=== PATIENT | female | born 2005 | race Caucasian/White ===

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

== ENCOUNTER 2023-02-15 22:57 | Emergency (ER) | payer SELFPAY ==
[2023-02-15] MEDS ORDERED: Acetaminophen 325 MG Tab PO ONE (23:33)
[2023-02-15 23:52] LABS: BASOPHILS PERCENT AUTO 0.2 % (0.0-1.5); EOSINOPHILS ABSOLUTE AUTO 0.2 K/uL (0.0-0.7); HEMATOCRIT 38.5 % (36.0-46.0); HEMOGLOBIN 13.2 g/dL (12.0-16.0); LYMPHOCYTES ABSOLUTE AUTO 2.7 K/uL (0.6-2.4); LYMPHOCYTES PERCENT AUTO 18.4 % (16.0-40.0); MEAN CORPUSCULAR HEMOGLOBIN 30.8 pg (27.0-32.0); MEAN CORPUSCULAR HGB CONC 34.3 g/dL (31.0-37.0); MONOCYTES PERCENT AUTO 7.1 % (0.0-15.0); NEUTROPHILS ABSOLUTE AUTO 10.7 K/uL (1.4-5.7); NEUTROPHILS PERCENT AUTO 73.3 % (48.0-80.0); NRBC ABSOLUTE 0 K/uL; PLATELET COUNT,PLT 273 K/uL (150-400); RED BLOOD CELL COUNT 4.28 M/uL (4.30-5.90); WHITE BLOOD CELL COUNT,WBC 14.55 K/uL (4.0-11.0)
[2023-02-16 00:46] LABS: A/G RATIO 1.1 (0.9-1.6); ALBUMIN 3.7 g/dL (3.4-5.0); BILIRUBIN TOTAL 0.1 mg/dL (0.2-1.0); CALCIUM 9.1 mg/dL (8.5-10.1); CARBON DIOXIDE,CO2 25.1 mmol/L (21.0-32.0); CREATININE 0.7 mg/dL (0.6-1.0); EST CRCL DRUG DOSING (CG) 116.32 mL/min; POTASSIUM,K 3.7 mmol/L (3.5-5.1)
[2023-02-16 01:39] LABS: APPEARANCE,URINE CLEAR; BILIRUBIN,URINE NEGATIVE (NEGATIVE); COLOR,URINE YELLOW; GLUCOSE,URINE NEGATIVE (NEGATIVE); KETONES,URINE 15 mg/dL (NEGATIVE); LEUKOCYTE ESTERASE,URINE NEGATIVE (NEGATIVE); NITRITE,URINE NEGATIVE (NEGATIVE); OCCULT BLOOD,URINE NEGATIVE (NEGATIVE); PROTEIN,URINE NEGATIVE (NEGATIVE); UROBILINOGEN,URINE 0.2 EU/dL (<2.0)
== END 2023-02-16 02:01 | disposition home or self-care (01) ==
LOC: MW.ED 22:57
DX: O26.891 Other specified pregnancy related conditions, first trimester (principal); R10.2 Pelvic and perineal pain; Z3A.09 9 weeks gestation of pregnancy
CPT/HCPCS: 36415; 76817; 80053; 81003; 83690; 84702; 85025; 86850; 86900; 86901; 99284; A9270

== ENCOUNTER 2023-09-18 08:04 | Inpatient (IN) | payer MEDICAID ==
[2023-09-18] MEDS ORDERED: Sodium Chloride 0.9% 20 ML SDV IV PRN (08:10)
[2023-09-18] MEDS ORDERED: Methylergonovine 0.2 MG/1 ML Amp IM PRN (08:10)
[2023-09-18] MEDS ORDERED: Sodium Chloride 0.9% 10 ML Syringe FLUSH PRN (08:10)
[2023-09-18] MEDS ORDERED: Butorphanol 1 MG/ML SDV IVPUSH PRN (08:10)
[2023-09-18] MEDS ORDERED: Ondansetron 4 MG/2 ML SDV IVPUSH PRN (08:10)
[2023-09-18] MEDS ORDERED: Tranexamic Acid IN NACL,ISO-OS 1,000 MG in Premix Bag 1 BAG IV PRN ×2 (08:10)
[2023-09-18] MEDS ORDERED: Sodium Chloride 0.9% 2.5 ML Syringe FLUSH PRN (08:10)
[2023-09-18] MEDS ORDERED: Carboprost Tromethamine 250 MCG/1 mL Vial IM PRN (08:10)
[2023-09-18] MEDS ORDERED: Misoprostol 200 MCG Tab PO PRN (08:10)
[2023-09-18] MEDS ORDERED: Lidocaine 1% 50 ML MDV INJECT PRN (08:10)
[2023-09-18] MEDS ORDERED: Water For Irrigation,Sterile 1,000 ML Container IRR PRN (08:10)
[2023-09-18] MEDS ORDERED: Terbutaline 1 MG/ML SDV SUBCUT PRN (08:13)
[2023-09-18] MEDS ORDERED: Misoprostol 25 MCG (1/4 of 100 MCG) Tab VAG PRN (08:13)
[2023-09-18] MEDS ORDERED: Oxytocin/0.9 % Sodium Chloride 30 UNIT/500 ML BAG IV SCH (08:15)
[2023-09-18] MEDS: Lactated Ringers 1,000 ML IV SCH ×3 (09:10→16:59)
[2023-09-18 09:47] LABS: HEMATOCRIT 41.2 % (37.0-47.0); HEMOGLOBIN 13.8 g/dL (12.0-16.0); MEAN CORPUSCULAR HEMOGLOBIN 28.5 pg (28.0-32.0); MEAN CORPUSCULAR HGB CONC 33.5 g/dL (32.0-36.0); MEAN CORPUSCULAR VOLUME 85.1 fL (83.0-99.0); MEAN PLATELET VOLUME 10.9 fL (9.4-12.3); PLATELET COUNT,PLT 364 K/uL (150-400); RED BLOOD CELL COUNT 4.84 M/uL (4.10-5.30)
[2023-09-18] MEDS ORDERED: Famotidine 20 MG/2 ML SDV IVPUSH ONE (12:53)
[2023-09-18] MEDS: Oxytocin/0.9 % Sodium Chloride 30 UNIT/500 ML BAG IV SCH (15:39)
[2023-09-18] MEDS ORDERED: Dinoprostone 10 MG Insert VAG ONE (18:05)
[2023-09-19] MEDS: Lactated Ringers 1,000 ML IV SCH ×2 (00:01→07:43)
[2023-09-19] MEDS: Oxytocin/0.9 % Sodium Chloride 30 UNIT/500 ML BAG IV SCH (07:42)
[2023-09-19] MEDS ORDERED: Sodium Chloride 0.9% 2.5 ML Syringe FLUSH PRN (11:42)
[2023-09-19] MEDS ORDERED: Sodium Chloride 0.9% 10 ML Syringe FLUSH PRN (11:42)
[2023-09-19] MEDS ORDERED: ceFAZolin 2 GM in Sodium Chloride 0.9% 50 ML IV ONE (11:42)
[2023-09-19] MEDS ORDERED: Citric Acid/Sodium Citrate Solution 30 ML Cup PO ONE (11:42)
[2023-09-19] MEDS ORDERED: Sodium Chloride 0.9% 20 ML SDV IV PRN (11:42)
[2023-09-19] MEDS ORDERED: Lactated Ringers 1,000 ML IV SCH ×2 (11:45→14:30)
[2023-09-19] MEDS ORDERED: Oxytocin/0.9 % Sodium Chloride 30 UNIT/500 ML BAG IV SCH ×2 (11:45→14:30)
[2023-09-19] MEDS ORDERED: fentaNYL 100 MCG/2 ML SDV ONE (12:11)
[2023-09-19] MEDS ORDERED: Oxytocin 10 Units/1 ML SDV ONE (12:11)
[2023-09-19] MEDS ORDERED: ceFAZolin 1 GM Vial ONE (12:11)
[2023-09-19] MEDS ORDERED: Ketorolac 30 MG/ML SDV ONE (12:11)
[2023-09-19] MEDS ORDERED: Morphine PF 10 MG/10 ML SDV ONE (12:11)
[2023-09-19] MEDS ORDERED: Ropivacaine 0.5% 5 MG/ML 30 ML SDV ONE (12:11)
[2023-09-19] MEDS ORDERED: Bupivacaine 0.25% 30 ML SDV ONE (12:11)
[2023-09-19] MEDS ORDERED: ePHEDrine 50 MG/ML SDV ONE ×2 (12:11→13:28)
[2023-09-19] MEDS ORDERED: EPINEPHrine 1 MG/1 ML Amp ONE ×2 (12:11→13:24)
[2023-09-19] MEDS ORDERED: Ondansetron 4 MG/2 ML SDV ONE (12:11)
[2023-09-19] MEDS ORDERED: Misoprostol 200 MCG Tab ONE (12:51)
[2023-09-19] MEDS ORDERED: Naloxone 0.4 MG/ML SDV ONE (13:03)
[2023-09-19] MEDS ORDERED: fentaNYL 100 MCG/2 ML SDV IVPUSH PRN (14:18)
[2023-09-19] MEDS ORDERED: Ondansetron 4 MG/2 ML SDV IVPUSH PRN ×2 (14:18→14:23)
[2023-09-19] MEDS ORDERED: diphenhydrAMINE 50 MG/ML SDV IVPUSH PRN ×2 (14:18→14:23)
[2023-09-19] MEDS ORDERED: ePHEDrine 50 MG/ML SDV IVPUSH PRN (14:18)
[2023-09-19] MEDS ORDERED: Acetaminophen/oxyCODONE 325-5 MG Tab PO PRN ×2 (14:18→14:23)
[2023-09-19] MEDS ORDERED: Bisacodyl 10 MG Supp RECTAL PRN (14:23)
[2023-09-19] MEDS ORDERED: Lanolin 100% Cream 7 GM Tube TOP PRN (14:23)
[2023-09-19] MEDS ORDERED: Misoprostol 200 MCG Tab RECTAL PRN (14:23)
[2023-09-19] MEDS ORDERED: Methylergonovine 0.2 MG/1 ML Amp IM PRN (14:23)
[2023-09-19] MEDS ORDERED: Ibuprofen 800 MG Tab PO PRN (14:23)
[2023-09-19] MEDS ORDERED: Oxytocin 10 Units/1 ML SDV IM PRN (14:23)
[2023-09-19] MEDS ORDERED: Ketorolac 30 MG/ML SDV IVPUSH SCH ×2 (14:30→17:00)
[2023-09-19] MEDS ORDERED: Calcium Carbonate 500 MG Tab.Chew PO PRN ×2 (14:41→15:00)
[2023-09-19] MEDS: Acetaminophen 1,000 MG in Premix Bag 1 BAG IV SCH ×2 (15:43→21:09)
[2023-09-19] MEDS: Ketorolac 30 MG/ML SDV IVPUSH SCH (19:00)
[2023-09-19] MEDS: Docusate Sodium 100 MG Cap PO SCH (21:09)
[2023-09-20] MEDS: Ketorolac 30 MG/ML SDV IVPUSH SCH ×2 (00:22→07:10)
[2023-09-20] MEDS: Acetaminophen 1,000 MG in Premix Bag 1 BAG IV SCH ×2 (04:20→08:29)
[2023-09-20 06:29] LABS: HEMATOCRIT 33.1 % (37.0-47.0)
[2023-09-20] MEDS: Docusate Sodium 100 MG Cap PO SCH ×2 (08:29→21:01)
[2023-09-20] MEDS: Acetaminophen/oxyCODONE 325-5 MG Tab PO PRN ×2 (15:09→21:01)
[2023-09-21] MEDS: Acetaminophen/oxyCODONE 325-5 MG Tab PO PRN ×3 (01:11→12:31)
[2023-09-21] MEDS: Docusate Sodium 100 MG Cap PO SCH (09:03)
== END 2023-09-21 14:48 | disposition home or self-care (01) | DRG 788 ==
LOC: MW.OBCHECK 08:04 → MW.OB 08:05 → MW.OBCHECK 09:01 → MW.OB 09:04 → OBSVTOIN 09-19 11:42 → MW.OB 09-19 18:54
PROVIDERS: ADMIT Obstetrics & Gynecology; ATTEND Obstetrics & Gynecology
PROC: 3E033VJ Introduction of Other Hormone into Peripheral Vein, Percutaneous Approach (ICD-10-PCS; 2023-09-19)
PROC: 3E0P7VZ Introduction of Hormone into Female Reproductive, Via Natural or Artificial Opening (ICD-10-PCS; 2023-09-19)
PROC: 10D00Z1 Extraction of Products of Conception, Low, Open Approach (ICD-10-PCS; principal; 2023-09-19 13:00)
DX: O99.03 Anemia complicating the puerperium (principal); O69.81X0 Labor and delivery complicated by cord around neck, without compression, not applicable or unspecified; Z37.0 Single live birth; O76 Abnormality in fetal heart rate and rhythm complicating labor and delivery; Z3A.39 39 weeks gestation of pregnancy
CPT/HCPCS: 36415; 59025; 85014; 85018; 85027; 86592; 86850; 86900; 86901; A9270-GY; J0131; J0171; J0665; J0690; J1100; J1200; J1885; J2274; J2310; J2405; J2590; J2795; J3010; J3490; J7120

== ENCOUNTER 2024-07-20 00:28 | Emergency (ER) | payer BC, MEDICAID ==
[2024-07-20] MEDS ORDERED: Sodium Chloride 0.9% 10 ML Syringe FLUSH PRN (00:29)
[2024-07-20] MEDS: Sodium Chloride 0.9% 1,000 ML IV ONE (00:56)
[2024-07-20] MEDS: Ondansetron 4 MG/2 ML SDV IVPUSH ONE (00:56)
[2024-07-20] MEDS: Ketorolac 30 MG/ML SDV IVPUSH ONE (01:02)
[2024-07-20 01:06] LABS: BASOPHILS ABSOLUTE AUTO 0.02 K/uL (0.00-0.20); BASOPHILS PERCENT AUTO 0.2 % (0.0-1.0); EOSINOPHILS ABSOLUTE AUTO 0.03 K/uL (0.00-0.45); EOSINOPHILS PERCENT AUTO 0.2 % (0.0-6.0); HEMATOCRIT 41.5 % (37.0-47.0); HEMOGLOBIN 14.2 g/dL (12.0-16.0); IMMATURE GRAN ABSOLUTE AUTO 0.05 K/uL (0.00-0.05); IMMATURE GRAN PERCENT AUTO 0.4 % (0.0-0.4); LYMPHOCYTES ABSOLUTE AUTO 0.63 K/uL (1.00-4.80); LYMPHOCYTES PERCENT AUTO 4.7 % (24.0-44.0); MEAN CORPUSCULAR HGB CONC 34.2 g/dL (32.0-36.0); MEAN CORPUSCULAR VOLUME 87.6 fL (83.0-99.0); MEAN PLATELET VOLUME 9.7 fL (9.4-12.3); MONOCYTES ABSOLUTE AUTO 0.84 K/uL (0.00-0.80); MONOCYTES PERCENT AUTO 6.3 % (0.0-8.0); NEUTROPHILS ABSOLUTE AUTO 11.74 K/uL (1.80-7.70); NEUTROPHILS PERCENT AUTO 88.2 % (41.0-71.0); PLATELET COUNT,PLT 256 K/uL (150-400); RED BLOOD CELL COUNT 4.74 M/uL (4.10-5.30); WHITE BLOOD CELL COUNT,WBC 13.31 K/uL (3.9-11.3)
[2024-07-20 01:19] LABS: APPEARANCE,URINE CLEAR; BILIRUBIN,URINE NEGATIVE (NEGATIVE); COLOR,URINE YELLOW; GLUCOSE,URINE NEGATIVE (NEGATIVE); KETONES,URINE NEGATIVE (NEGATIVE); LEUKOCYTE ESTERASE,URINE NEGATIVE (NEGATIVE); NITRITE,URINE NEGATIVE (NEGATIVE); OCCULT BLOOD,URINE NEGATIVE (NEGATIVE); PH,URINE 5.5 (5.0-8.0); PROTEIN,URINE NEGATIVE (NEGATIVE); UROBILINOGEN,URINE 0.2 EU/dL (<2.0)
[2024-07-20 01:29] LABS: A/G RATIO 1.2 (0.9-1.6); BILIRUBIN TOTAL 0.5 mg/dL (0.2-1.0); CALCIUM 8.8 mg/dL (8.5-10.1); CARBON DIOXIDE,CO2 26.3 mmol/L (21.0-32.0); CREATININE 0.8 mg/dL (0.6-1.0); EST CRCL DRUG DOSING (CG) 100.1 mL/min; MAGNESIUM 1.7 mg/dL (1.8-2.4); POTASSIUM,K 3.6 mmol/L (3.5-5.1); PROTEIN TOTAL,TP 7.4 g/dL (6.4-8.2)
[2024-07-20] MEDS: Iopamidol 755 MG/ML 500 ML Multipack Bottle IVPUSH ONE (02:17)
[2024-07-20] MEDS: Morphine 4 MG/ML Syringe IVPUSH PRN (03:11)
== END 2024-07-20 03:48 | disposition home or self-care (01) ==
LOC: MW.ED 00:28
DX: N83.201 Unspecified ovarian cyst, right side (principal); R11.2 Nausea with vomiting, unspecified; R19.7 Diarrhea, unspecified; D72.829 Elevated white blood cell count, unspecified
CPT/HCPCS: 36415; 74177; 80053; 81003; 83690; 83735; 84703; 85025; 87428; 96361; 96374; 96375; 99284; J1885; J2270; J2405; J7030; Q9967

== ENCOUNTER 2024-08-14 21:27 | Emergency (ER) | payer MEDICAID | END 2024-08-14 22:16 | disposition home or self-care (01) | LOC: MW.ED 21:27 | DX: J32.9 Chronic sinusitis, unspecified (principal); Z79.899 Other long term (current) drug therapy | CPT/HCPCS: 99283 ==